=== PATIENT | female | born 1940 | race Caucasian/White ===

== ENCOUNTER → 2017-03-05 | Outpatient (CLI) | payer MEDICARE, BC ==
--- NOTE | 2017-03-05 07:50 | US ---
EXAMINATION TYPE: US kidneys/renal and bladder DATE OF EXAM: 03/05/2017 7:26 AM COMPARISON: NONE CLINICAL HISTORY: N20.0 Kidney stone. Patient stated prior renal stone years ago, and currently had e pisode of pelvic pain EXAM MEASUREMENTS: Right Kidney: 11.4 x 6.0 x 4.1 cm Left Kidney: 10.5 x 4.9 x 4.4 cm Post Void Residual Volume: 33.9 mL Right Kidney: abnormally prominent renal pelvis at 1.6cm Left Kidney: abnormally prominent renal pelvis at 1.5cm Bladder: wnl Bilateral Jets seen: Yes Normal Post Void Residual: Yes, as is <50.0ml. No solid renal length. No nephrolithiasis is identified. IMPRESSION: Prominent renal pelves may reflect extrarenal pelvis although chronic UPJ obstruction is not excluded . Correlate clinically and consider CT if indicated.
== END | disposition home or self-care (01) ==
LOC: RADUSWWP 06:46
PROVIDERS: ATTEND Internal Medicine Geriatric Medicine
DX: N20.0 Calculus of kidney (principal)
CPT/HCPCS: 76770

== ENCOUNTER → 2017-06-01 | Outpatient (CLI) | payer MEDICARE, BC ==
--- NOTE | 2017-06-02 10:45 | MM ---
Reason for exam: screening (asymptomatic). Last mammogram was performed 1 year ago. History: Patient is postmenopausal. Family history of breast cancer in mother at age 62, breast cancer in grandmother at age 52, breast cancer in 2 aunts, and breast cancer in 2 cousins. Benign left US cyst aspiration of the left breast, March 16, 2007. Excisional biopsy of the right breast, 1987. Cyst aspiration of the right breast. Took estrogen for 15 years 6 months beginning at age 60. Physical Findings: A clinical breast exam by your physician is recommended on an annual basis and results should be correlated with mammographic findings. MG 3D Screening Mammo W/Cad Bilateral CC and MLO view(s) were taken. Prior study comparison: May 28, 2016, left breast US breast workup limited LT. May 21, 2016, bilateral MG 3d screening mammo w/cad. May 07, 2015, bilateral MG screening mammo w CAD. April 16, 2014, bilateral MG diagnostic mammo w CAD JERZY. March 31, 2013, CAD bilateral diagnostic mammogram. March 30, 2012, bilateral digital screening mammo w/CAD. The breast tissue is heterogeneously dense. This may lower the sensitivity of mammography. No significant changes when compared with prior studies. ASSESSMENT: Negative, BI-RAD 1 RECOMMENDATION: Routine screening mammogram of both breasts in 1 year.
== END | disposition home or self-care (01) ==
LOC: RADMAMWWP 08:11
PROVIDERS: ATTEND Internal Medicine Geriatric Medicine
DX: Z12.31 Encounter for screening mammogram for malignant neoplasm of breast (principal)
CPT/HCPCS: 77063; G0202

== ENCOUNTER → 2018-06-23 | Outpatient (CLI) | payer MEDICARE, BC ==
--- NOTE | 2018-06-28 10:48 | MM ---
Reason for exam: screening (asymptomatic). Last mammogram was performed 1 year and 1 month ago. History: Patient is postmenopausal. Family history of breast cancer in mother at age 62, breast cancer in grandmother at age 52, breast cancer in 2 aunts, and breast cancer in 2 cousins. Benign left US cyst aspiration of the left breast, March 16, 2007. Excisional biopsy of the right breast, 1987. Cyst aspiration of the right breast. Took estrogen for 15 years 6 months beginning at age 60. Physical Findings: A clinical breast exam by your physician is recommended on an annual basis and results should be correlated with mammographic findings. MG 3D Screening Mammo W/Cad Bilateral CC and MLO view(s) were taken. Prior study comparison: June 01, 2017, bilateral MG 3d screening mammo w/cad. May 21, 2016, bilateral MG 3d screening mammo w/cad. The breast tissue is heterogeneously dense. This may lower the sensitivity of mammography. Previous mammotome biopsy in the left breast. No significant changes when compared with prior studies. ASSESSMENT: Negative, BI-RAD 1 RECOMMENDATION: Routine screening mammogram of both breasts in 1 year.
== END | disposition home or self-care (01) ==
LOC: RADMAMWWP 09:40
PROVIDERS: ATTEND Internal Medicine Geriatric Medicine
DX: Z12.31 Encounter for screening mammogram for malignant neoplasm of breast (principal)
CPT/HCPCS: 77063; 77067

== ENCOUNTER → 2018-08-09 | Outpatient (CLI) | payer MEDICARE, BC ==
--- NOTE | 2018-08-09 15:36 | US ---
EXAMINATION TYPE: US venous doppler duplex LE LT DATE OF EXAM: 08/09/2018 11:23 AM COMPARISON: US 07/27/15 CLINICAL HISTORY: M79.672 PAIN IN LEFT FOOT,E11.9 TYPE 2 DM. SIDE PERFORMED: Left TECHNIQUE: The lower extremity deep venous system is examined utilizing real time linear array sonog latoya with graded compression, doppler sonography and color-flow sonography. VESSELS IMAGED: External Iliac Vein (EIV) Common Femoral Vein Deep Femoral Vein Greater Saphenous Vein * Femoral Vein Popliteal Vein Small Saphenous Vein * Proximal Calf Veins (* superficial vessels) Grayscale, color doppler, spectral doppler imaging performed of the deep veins of the left lower extr emity. There is normal flow, compressibility, vascular waveforms. Left Leg: Negative for DVT IMPRESSION: No sonographic evidence of deep venous thrombosis within the left lower extremity.
== END ==
LOC: RADUSWWP 11:03
PROVIDERS: ATTEND Orthopaedic Surgery
DX: M79.672 Pain in left foot (principal); I80.9 Phlebitis and thrombophlebitis of unspecified site; E11.9 Type 2 diabetes mellitus without complications; M79.89 Other specified soft tissue disorders

== ENCOUNTER → 2019-03-08 | Outpatient (CLI) | payer MEDICARE, BC ==
--- NOTE | 2019-03-08 10:05 | USB ---
Reason for exam: clinical finding. History: Patient is postmenopausal. Family history of breast cancer in mother at age 62, breast cancer in grandmother at age 52, breast cancer in 2 aunts, and breast cancer in 2 cousins. Benign left US cyst aspiration of the left breast, March 16, 2007. Excisional biopsy of the right breast, 1987. Cyst aspiration of the right breast. Took estrogen for 15 years 6 months beginning at age 60. Indicated problem(s): pain in the left breast. Physical Findings: Nurse Summary: left nipple inversion with clear discharge noted on exam left breast tissue prominence posterior nipple (nurse ts). US Breast LT Left complete breast ultrasound includes all four quadrants, the retroareolar region and axilla. Finding demonstrates a 2.9 x 0.5 x 0.5cm tubular, solid components at the posterior nipple, biopsy recommended in this patient with new nipple inversion and clear nipple discharge. These results were verbally communicated with the patient and result sheet given to the patient on 03/08/19. ASSESSMENT: Suspicious, BI-RAD 4 RECOMMENDATION: Surgical consultation and ultrasound core biopsy of the left breast. Called Dr. Huizar with mammographic findings and has scheduled an appointment for the patient for 03/15/19 at 3:[address] Mcdonald. PRELIMINARY REPORT CALLED AND FAXED TO DR. MCDONALD ON 03/08/19.
== END | disposition home or self-care (01) ==
LOC: RADUSWWP 08:12
PROVIDERS: ATTEND Internal Medicine Geriatric Medicine
DX: N64.9 Disorder of breast, unspecified (principal)

== ENCOUNTER → 2019-03-29 | Day surgery (SDC) | payer MEDICARE, BC ==
[2019-03-29 13:24] VITALS: RESP 16; BMI 29.7
[2019-03-29 14:34] VITALS: BP 148/82; PULSE 59; TEMP 98.1
--- NOTE | 2019-03-30 09:14 | USB ---
EXAMINATION TYPE: US biopsy breast VAD LT, MG diagnostic mammo LT wo CAD DATE OF EXAM: 03/29/2019 CLINICAL HISTORY: R92.8 ABN BLADIMIR. TECHNIQUE: Ultrasound guided core biopsy of left breast. COMPARISON: Ultrasound dated 03/08/2019 FINDINGS: The procedure of ultrasound guided core biopsy was explained to the patient. Benefits, alternatives, and risks were discussed. An informed consent was then obtained. Preprocedural timeout was performed. The patient was placed in supine positioning for imaging and for the procedure. The overlying skin was prepped and draped in usual sterile fashion. 10 cc of 1% lidocaine was used as anesthetic into the skin and subcutaneous tissue up to the retroareolar tubular 2.9 x 0.5 x 0.5 cm possible duct with solid internal components in this patient with new nipple inversion and clear discharge. Under ultrasound guidance, a 12-gauge vacuum assisted biopsy gun device was used to obtain 4 core samples. Following this, a wing shaped biopsy marker was left at the site of biopsy. The patient tolerated the procedure well without any immediate complication. The patient was kept in the radiology department for short stay after the procedure and then discharged home in stable condition. Postprocedural mammogram demonstrates appropriate biopsy marker placement IMPRESSION: Successful, uncomplicated ultrasound guided core biopsy of area of a tubular 2.9 cm retroareolar mass, likely a dilated duct with filling defect in this patient with clear nipple discharge and new nipple inversion, full pathology results to follow. Pathology Results: Benign LEFT BREAST, THREE O'CLOCK, ULTRASOUND GUIDED CORE BIOPSY: Fibrocystic changes including fibrosis, cysts, sclerosing adenosis and microcalcifications. Recommendation Surgical consult of the left breast. Nipple inversion. Clear nipple discharge, duct exploration could be considered or MRI. MTDD
== END | disposition home or self-care (01) ==
LOC: RADUSWWP 12:53
PROVIDERS: ATTEND Surgery
DX: N60.32 Fibrosclerosis of left breast (principal); N60.02 Solitary cyst of left breast; N60.22 Fibroadenosis of left breast; Z88.0 Allergy status to penicillin; Z88.2 Allergy status to sulfonamides
CPT/HCPCS: 88305; 77065; 19083; A4648; J2001

== ENCOUNTER → 2019-04-28 | Outpatient (CLI) | payer MEDICARE, BC ==
--- NOTE | 2019-05-02 16:24 | BMR ---
EXAMINATION TYPE: MR breast BILAT wo/w con DATE OF EXAM: 04/28/2019 COMPARISON: Mammogram and ultrasound dating back to 06/01/2017 HISTORY: Fibrocystic disease of left breast / clear nipple discharge and left nipple inversion TECHNIQUE: A series of fat and water weighted images in the long and short axis views of both breasts are obtained in conjunction with dynamic contrast MRI with subtraction technique. The patient was i njected with 7.5 mL intravenous Gadavist gadolinium contrast. Three-dimensional and additional post processing imaging is created on independent workstation and reviewed during official interpretation of this study. FINDINGS: The breasts are composed of heterogenous fibroglandular tissue. There is mild symmetric philip kground parenchymal enhancement. There is precontrast T1 hyperintensity within a solitary mildly dilated retroareolar duct measuring a pproximately 4 mm. There does appear to be very subtle mild enhancement along this duct that is linea r nonmass enhancement. This persists posteriorly from the nipple measuring a distance of approximatel y 4.4 cm in the retroareolar left breast at the nipple. Susceptibility artifact from a biopsy marker is seen approximately 8 mm lateral to this and sixth slices above this. There is some discontinuity i n the ductal enhancement. No suspicious internal mammary, intramammary, or axillary adenopathy is seen within either breast. No suspicious mass nor nonmass enhancement within the right breast. No additional abnormal enhancement on the left. Multiple background foci are seen. IMPRESSION: BI-RADS 4-suspicious finding. Very subtle and mild nonmass enhancement is seen along a solitary dilat ed retroareolar duct measuring 4.4 cm in length that is linear and is continuous. This is suspicious in a patient with clear nipple discharge and new nipple inversion. Degree of enhancement is difficult to distinguish as there is precontrast T1 hyperintensity indicative of proteinaceous or hemorrhagic internal debris. This could be localized with MRI for duct exploration. Alternatively MRI biopsy coul d be considered. If discharge is reproducible and uniorficeal ductogram with subsequent mammographic localization for duct exploration could be performed.
== END | disposition home or self-care (01) ==
LOC: RADMRIMAIN 10:55
PROVIDERS: ATTEND Surgery
DX: N60.12 Diffuse cystic mastopathy of left breast (principal); N64.52 Nipple discharge; N64.59 Other signs and symptoms in breast
CPT/HCPCS: C8937; C8908; A9585; 77049

== ENCOUNTER 2019-06-01 10:40 | Day surgery (SDC) | payer MEDICARE, BC ==
[2019-05-29 11:04] VITALS: BMI 29.7
[~2019-06-01 10:40] MED LIST: DEXAMETHASONE SOD PHOSPHATE 10 MG/ML 1 ML VIAL IV ONE; HEPARIN SODIUM,PORCINE 5,000 UNIT/ML 1 ML VIAL SQ ONE; LACTATED RINGERS 1,000 ML IV SCH; LIDOCAINE 1% 20 ML VIAL (10MG/ML) FOR IV START INTRADERMA PRN; MIDAZOLAM 2 MG/2 ML VIAL IV PRN; ONDANSETRON 4 MG/2 ML VIAL IVP ONE; SCOPOLAMINE 1.5MG/72HR PATCH TRANSDERM ONE
[2019-06-01 11:27] LABS: Glucose,Whole Blood 114 mg/dL (75-99)
[2019-06-01] MEDS ORDERED: ALPRAZolam 0.25 MG TAB PO ONE (11:28)
[2019-06-01] MEDS ORDERED: LIDOCAINE 1% INJ 10MG/ML (20 ML MDV) SQ ONE (13:21)
[2019-06-01] MEDS ORDERED: MIDAZOLAM 2 MG/2 ML VIAL ONE (13:50)
[2019-06-01] MEDS ORDERED: NEOSTIGMINE 1 MG/ML 10 ML VIAL ONE (13:50)
[2019-06-01] MEDS ORDERED: fentaNYL (PF) 50 MCG/ML 2 ML AMP ONE (13:50)
[2019-06-01] MEDS ORDERED: PROPOFOL 10 MG/ML 20 ML VIAL IV ONE (13:50)
[2019-06-01] MEDS ORDERED: ROCURONIUM BROMIDE 10 MG/ML 10 ML VIAL IV ONE (13:50)
[2019-06-01] MEDS ORDERED: LIDOCAINE 1% INJ 10MG/ML (20 ML MDV) ONE (13:50)
[2019-06-01] MEDS ORDERED: GLYCOPYRROLATE 0.2 MG/ML 2 ML VIAL ONE (13:50)
[2019-06-01] MEDS ORDERED: ePHEDrine SULFATE/0.9% NACL/PF 50 MG/5 ML SYRINGE IV ONE (13:50)
[2019-06-01] MEDS ORDERED: LIDOCAINE 1%-EPI 1:100,000 20 ML VIAL SQ ONE ×2 (14:06→15:09)
[2019-06-01 14:51] LABS: Glucose,Whole Blood 95 mg/dL (75-99)
[2019-06-01 15:29] VITALS: TEMP 96.8
--- NOTE | 2019-06-01 15:30 | P.OP ---
Date of Procedure: 06/01/19 Preoperative Diagnosis: Nipple drainage, inverted nipple Postoperative Diagnosis: Nipple drainage, inverted nipple Procedure(s) Performed: Left breast ductal exploration and ductal excision with needle localization Anesthesia: ESTRADA Surgeon: Wagner Granda Pathology: other (Left breast ductal lesion, posterior margin, superior posterior margin) Condition: stable Disposition: same day Indications for Procedure: This is a 78-year-old female that began to have nipple drainage and left-sided nipple inversion. Secondary to this, the patient did undergo imaging. Imaging was noted to be abnormal and she did undergo biopsy of left breast. Biopsy was found to be benign, however the findings were discordant with imaging findings. MRI was then ordered and an abnormal duct was visualized. The case was discussed at breast tumor board and decision was made for a ductal expiration. This was expected to the patient and the patient did agree. She was explained the risks, benefits and alternatives to the procedure and did provide consent prior to attending the operating suite. Operative Findings: Specimen removed without clip finding on x-ray. Additional superior and posterior margins were taken with clip in place. Description of Procedure: The patient was brought into the operating suite and placed in supine position on the operating table. Sedation was provided by anesthesia and the patient underwent endotracheal intubation. The patient was then prepped and draped in regular sterile fashion. A left-sided curvilinear incision was made at the areolar line. Dissection was then carried towards the area of needle localization. The ductal area just below the nipple was interrogated and excised. This dissection was carried towards the chest wall. The duct was then removed in its entirety and handed as specimen. X-ray was performed by radiology and clip was noted not to be in place. An additional posterior and superior posterior margin was then taken. Clip was noted to be in place on repeat x-ray. Hemostasis was maintained with electrocautery. Irrigation was then used within the wound. The surgical site was then closed in layers with 3- 0 Vicryl and 4-0 Vicryl suture. The patient was awakened in the operating suite and taken to post anesthesia care unit in stable condition.
[2019-06-01 15:59] LABS: Glucose,Whole Blood 100 mg/dL (75-99)
[2019-06-01] MEDS: HYDROmorphone 0.5 MG/0.5 ML SYRINGE IVP PRN ×2 (16:10→16:25)
[2019-06-01] MEDS ORDERED: ONDANSETRON 4 MG/2 ML VIAL IVP ONE (16:30)
[2019-06-01 16:52] VITALS: PULSE 48; RESP 18
[2019-06-01 16:59] VITALS: BP 126/74
--- NOTE | 2019-06-01 21:32 | MM ---
EXAMINATION TYPE: MG pre op needle loc LT, MG surgical specimen LT DATE OF EXAM: 06/01/2019 COMPARISON: Bilateral breast MRI April 28, 2019. Left breast biopsy March 29, 2019 and mammogram. Older mammograms. CLINICAL HISTORY: Abnormal MRI. Left breast nipple discharge. TECHNIQUE: Needle localization with wire placement and surgical excision of area of concern in the left breast. FINDINGS: The procedure of needle localization with wire placement and than surgical excision was explained to the patient. Benefits, alternatives, and risks were discussed. An informed consent was then obtained. Review of MRI was performed. . MRI concern is medial and just inferior to the biopsy clip. Because of this inferior approach was chosen. The overlying skin was prepped and draped in usual sterile fashion. Lidocaine was used as anesthetic into the skin and subcutaneous tissue up to the level of area of concern. A 7 cm needle was used. It was placed via a inferior approach under mammographic guidance. Subsequent 90 degrees mammogram show the needle to be in satisfactory position relative to the targeted area, biopsy clip which is in close proximity to area of MRI concern. At this point, wire was placed and the needle was withdrawn. The wire was fixed to patient's skin. Images were marked for surgeon. The patient tolerated the procedure well without any immediate complication. The patient was kept in the radiology department for short stay after the procedure and then taken to surgery for surgical excision. Targeted biopsy clip and wire are identified in specimen mammogram. The patient was kept in hospital for short stay after the procedure and then discharged home in stable condition. IMPRESSION: Successful, uncomplicated needle localization with wire placement and surgical excision of targeted biopsy clip in the left breast, full pathology results to follow. Low to intermediate index of suspicion noted at time of procedure. Pathology Results: High Risk A. LEFT BREAST, NEEDLE LOCALIZATION EXCISION: Intraductal papilloma with focal atypia, not involving the margin. Background fibrocystic changes including fibrosis, cysts, sclerosing adenosis with calcifications, apocrine metaplasia, fibroadenomatoid hyperplasia and mild usual type ductal hyperplasia including papillomatosis. Previous biopsy site. B. LEFT BREAST, SUPERIOR POSTERIOR MARGIN, EXCISION: Intraductal papilloma extending to the black inked (superior/posterior) margin. Background fibrocystic changes with rare microcalcifications. C. LEFT BREAST, POSTERIOR MARGIN, EXCISION: Benign breast with fibrocystic changes including sclerosing adenosis with microcalcifications. Recommendation Follow up mammogram of the left breast in 6 months and follow up breast MRI in 6 months. The localized duct was pre-contrast T1 hyperintense with subtle enhancement. Papillomas account for the ductal debris and minimally enhancement was likely inflamed. MTDD
== END 2019-06-01 17:18 | disposition home or self-care (01) ==
LOC: OR 10:40
PROVIDERS: ATTEND Surgery
DX: D24.2 Benign neoplasm of left breast (principal); N60.12 Diffuse cystic mastopathy of left breast; N60.22 Fibroadenosis of left breast; N60.82 Other benign mammary dysplasias of left breast; I10 Essential (primary) hypertension; E78.5 Hyperlipidemia, unspecified; E11.9 Type 2 diabetes mellitus without complications; Z87.891 Personal history of nicotine dependence; Z79.84 Long term (current) use of oral hypoglycemic drugs; Z79.82 Long term (current) use of aspirin; Z79.899 Other long term (current) drug therapy; Z88.0 Allergy status to penicillin; Z88.2 Allergy status to sulfonamides; Z90.710 Acquired absence of both cervix and uterus; Z90.49 Acquired absence of other specified parts of digestive tract; Z97.2 Presence of dental prosthetic device (complete) (partial); Z80.3 Family history of malignant neoplasm of breast; Z80.41 Family history of malignant neoplasm of ovary; Z82.49 Family history of ischemic heart disease and other diseases of the circulatory system
CPT/HCPCS: 19125; 19281; 88307; 76098; J2250; J1644; J1100; J2710; J0690; J2405; J2001; J3010; J2704; J1170

== ENCOUNTER → 2019-07-13 | Outpatient (CLI) | payer MEDICARE, BC ==
--- NOTE | 2019-07-13 14:14 | MM ---
Reason for exam: follow-up at short interval from prior study. Last mammogram was performed 3 months ago. History: Patient is postmenopausal and has history of high-risk lesion on a previous biopsy at age 78. Family history of breast cancer in mother at age 62, breast cancer in grandmother at age 52, breast cancer in 2 aunts, and breast cancer in 2 cousins. High risk MG pre op needle loc LT of the left breast, June 01, 2019. Benign US biopsy breast VAD LT of the left breast, March 29, 2019. Benign left US cyst aspiration of the left breast, March 16, 2007. Excisional biopsy of the right breast, 1987. Cyst aspiration of the right breast. Took estrogen for 15 years 6 months beginning at age 60. Physical Findings: Nurse Summary: left breast pain (nurse dw). MG 3D Diag Mammo W/Cad RT CC and MLO view(s) were taken of the right breast. Prior study comparison: March 29, 2019, left breast MG diagnostic mammo LT wo CAD. June 23, 2018, bilateral MG 3d screening mammo w/cad. The breast tissue is heterogeneously dense. This may lower the sensitivity of mammography. There is no discrete abnormality. These results were verbally communicated with the patient and result sheet given to the patient on 07/13/19. ASSESSMENT: Negative, BI-RAD 1 RECOMMENDATION: Follow-up diagnostic mammogram in 6 months. (follow up mammogram of the left breast in 6 months) Called with mammographic findings and has scheduled an appointment for the patient for 07/19/19 at 2:[address] Mcdonald. PRELIMINARY REPORT CALLED AND FAXED TO DR. MCDONALD ON 07/13/19.
== END | disposition home or self-care (01) ==
LOC: RADMAMWWP 12:40
PROVIDERS: ATTEND Surgery
DX: R92.8 Other abnormal and inconclusive findings on diagnostic imaging of breast (principal)
CPT/HCPCS: 77065; G0279; 77061

== ENCOUNTER → 2020-03-12 | Outpatient (CLI) | payer MEDICARE, BC ==
--- NOTE | 2020-03-14 07:40 | MM ---
Reason for exam: additional evaluation requested from prior study. Last mammogram was performed 8 months ago. History: Patient is postmenopausal and has history of high-risk lesion on a previous biopsy at age 78. Family history of breast cancer in mother at age 62, breast cancer in grandmother at age 52, breast cancer in 2 aunts, and breast cancer in 2 cousins. High risk MG pre op needle loc LT of the left breast, June 01, 2019. Benign US biopsy breast VAD LT of the left breast, March 29, 2019. Benign left US cyst aspiration of the left breast, March 16, 2007. Excisional biopsy of the right breast, 1987. Cyst aspiration of the right breast. Took estrogen for 15 years 6 months beginning at age 60. Physical Findings: Nurse did not find any significant physical abnormalities on exam. MG 3D Diag Mammo W/Cad JERZY Bilateral CC and MLO view(s) were taken. Prior study comparison: July 13, 2019, right breast MG 3d diag mammo w/cad RT. March 29, 2019, left breast MG diagnostic mammo LT wo CAD. The breast tissue is heterogeneously dense. This may lower the sensitivity of mammography. There are benign appearing vascular calcifications bilaterally. Previous mammotome biopsy in the left breast. There is no discrete abnormality. Benign axillary lymph nodes. These results were verbally communicated with the patient and result sheet given to the patient on 03/12/20. ASSESSMENT: Benign, BI-RAD 2 RECOMMENDATION: Routine screening mammogram of both breasts in 1 year.
== END | disposition home or self-care (01) ==
LOC: RADMAMWWP 10:24
PROVIDERS: ATTEND Surgery
DX: R92.8 Other abnormal and inconclusive findings on diagnostic imaging of breast (principal); Z78.0 Asymptomatic menopausal state; Z98.890 Other specified postprocedural states; Z80.3 Family history of malignant neoplasm of breast
CPT/HCPCS: 77066; G0279; 77062

== ENCOUNTER → 2021-04-03 | Outpatient (CLI) | payer MEDICARE, BC ==
--- NOTE | 2021-04-09 10:45 | MM ---
Reason for exam: screening (asymptomatic). Last mammogram was performed 1 year and 1 month ago. History: Patient is postmenopausal and has history of high-risk lesion on a previous biopsy at age 78. Family history of breast cancer in mother at age 62, breast cancer in grandmother at age 52, breast cancer in 2 aunts, and breast cancer in 2 cousins. High risk MG pre op needle loc LT of the left breast, June 01, 2019. Benign US biopsy breast VAD LT of the left breast, March 29, 2019. Benign left US cyst aspiration of the left breast, March 16, 2007. Excisional biopsy of the right breast, 1987. Cyst aspiration of the right breast. Took estrogen for 15 years 6 months beginning at age 60. Physical Findings: A clinical breast exam by your physician is recommended on an annual basis and results should be correlated with mammographic findings. MG 3D Screening Mammo W/Cad Bilateral CC and MLO view(s) were taken. Prior study comparison: March 12, 2020, bilateral MG 3d diag mammo w/cad JER[facility]Y. July 13, 2019, right breast MG 3d diag mammo w/cad RT. The breast tissue is heterogeneously dense. This may lower the sensitivity of mammography. Previous mammotome biopsy in the left breast. No significant changes when compared with prior studies. ASSESSMENT: Benign, BI-RAD 2 RECOMMENDATION: Routine screening mammogram of both breasts in 1 year.
== END | disposition home or self-care (01) ==
LOC: RADMAMWWP 14:32
PROVIDERS: ATTEND Surgery
DX: Z12.31 Encounter for screening mammogram for malignant neoplasm of breast (principal); Z78.0 Asymptomatic menopausal state; Z80.3 Family history of malignant neoplasm of breast
CPT/HCPCS: 77063; 77067

== ENCOUNTER → 2022-04-15 | Outpatient (CLI) | payer MEDICARE, BC ==
--- NOTE | 2022-04-16 08:22 | MM ---
Reason for Exam: Additional evaluation requested from prior study. Clinical finding. Last screening mammogram was performed 12 month(s) ago. Indicated Problems: Pain of the left side (Focal) for 8 Month(s). Patient History: Menarche at age 15. First Full-Term at age 21. Hysterectomy at age 43. Postmenopausal. Estrogen, starting at age 60 for 15 years, 6 months. Cyst Aspiration on the Right side. 1987, Excisional Biopsy on the Right side. 06/01/2019, High risk Core Biopsy on the left side. 03/29/2019, Benign Core Biopsy on the left side. 03/16/2007, Benign Cyst Aspiration on the left side. Maternal grandmother had breast cancer, age 52. Maternal cousin had breast cancer. Maternal cousin had breast cancer. Maternal aunt had breast cancer. Maternal aunt had breast cancer. Mother had breast cancer, age 62. Risk Values: [place] 5 year model risk: 4.7%. NCI Lifetime model risk: 7.7%. Prior Study Comparison: 07/13/2019 Right Diagnostic Mammogram, [facility]. 03/12/2020 Bilateral Diagnostic Mammogram, [facility]. 04/03/2021 Bilateral Screening Mammogram, [facility]. Tissue Density: The breast tissue is heterogeneously dense. This may lower the sensitivity of mammography. Findings: Analyzed By CAD. Mammogram Postoperative distortion left breast. No distinct mass. No suspicious microcalcifications. Vascular calcifications present.. Technique: Method: Targeted. Findings: The upper outer quadrant of the left breast, the axilla of the left breast and the retroareolar of the left breast were scanned. No solid or cystic mass is identified. Overall Assessment: Negative, BI-RAD 1 Assessment: MG 3D diag mammo w/cad JERZY - Bilateral: Incomplete: need additional imaging evaluation, BI-RAD 0 - Left. US breast limited LT - Left: Negative, BI-RAD 1. Management: Screening Mammogram of both breasts in 1 year. A clinical breast exam by your physician is recommended on an annual basis and results should be correlated with mammographic findings. Results were given to the patient verbally at the time of exam. Electronically signed and approved by: Jabier Valadez M.D. Radiologis
== END | disposition home or self-care (01) ==
LOC: RADMAMWWP 14:16
PROVIDERS: ATTEND Internal Medicine Geriatric Medicine
DX: N64.4 Mastodynia (principal); Z80.3 Family history of malignant neoplasm of breast; Z78.0 Asymptomatic menopausal state
CPT/HCPCS: 77066; 76642; G0279; 77062

== ENCOUNTER 2022-05-23 17:09 | Emergency (ER) | payer MEDICARE, BC ==
[2022-05-23 17:16] VITALS: RESP 20; TEMP 97.7
--- NOTE | 2022-05-23 17:37 | ED ---
General Adult HPI - General Chief complaint: Extremity Injury, Lower Stated complaint: Sent by ortho/Possible Blood clot Time Seen by Provider: 05/23/22 17:23 Source: patient Mode of arrival: ambulatory Limitations: no limitations - History of Present Illness Initial comments: Dictation was produced using [employer] dictation software. please excuse any grammatical, word or spelling errors. Chief Complaint: 81-year-old female presents with left calf pain History of Present Illness: 81-year-old female she presents to emergency departm ent with left calf pain. Patient states she recently had arthroscopy performed on the left knee. She called the on-call orthopedic surgeon in 2 explained to him that she was having left calf pain or patient states that she was instructed to come to the ER for evaluation of blood clot. Patient states that whenever she stands she has significant swelling the left leg worse in the right. She also has left-sided Pain the left popliteal pain. Patient has any chest pain shortness of breath. Denies any history of blood clot. The ROS documented in this emergency department record has been reviewed and confirmed by me. Those systems with pertinent positive or negative responses have been documented in the HPI. All other systems are other negative and/or noncontributory. PHYSICAL EXAM: General Impression: Alert and oriented x3, not in acute distress HEENT: Normocephalic atraumatic, extra-ocular movements intact, pupils equal and reactive to light bilaterally, mucous membranes moist. Cardiovascular: Heart regular rate and rhythm Chest: Able to complete full sentences, no retractions, no tachypnea Musculoskeletal: Pulses present and equal in all extremities, no peripheral edema Motor: no focal deficits noted Neurological: CN II-XII grossly intact, no focal motor or sensory deficits noted Skin: Intact with no visualized rashes Psych: Normal affect and mood ED course: 81-year-old female presents to the emergency department with left lower extremity symptoms suspicious for lower extremity DVT. Ends upon arrival are within acceptable limits. No concerns for PE at this time given that she does not have any thoracic symptoms. Ultrasound is unremarkable for DVT. Patient be discharged. - Related Data Home Medications Medication Instructions Recorded Confirmed Acarbose [Precose] 25 mg PO QAM 07/27/15 06/01/19 Metoprolol Succinate [Toprol XL] 25 mg PO QAM 07/27/15 06/01/19 Simvastatin [Zocor] 40 mg PO Q48H 07/27/15 06/01/19 metFORMIN HCL [Glucophage] 500 mg PO AC-SUPPER 07/27/15 06/01/19 Vit C/E/Zn/Coppr/Lutein/Zeaxan 1 cap PO DAILY 01/31/16 05/29/19 [Preservision Areds 2 Softgel] ALPRAZolam [Xanax] 0.125 - 0.25 mg PO DAILY PRN 03/22/19 06/01/19 L.acidoph,Paracasei, B.lactis 1 each PO DAILY 03/22/19 06/01/19 [Probiotic] lisinopriL [Zestril] 2.5 mg PO HS 03/22/19 06/01/19 Kevon/D3/Mag11/Zinc/Lye Treater/Armen/Bor 1 each PO DAILY 05/29/19 05/29/19 [Caltrate 600+D Plus Tablet] Previous Rx's Medication Instructions Recorded Ibuprofen [Motrin] 600 mg PO Q6HR PRN #20 tab 06/01/19 Allergies Allergy/AdvReac Type Severity Reaction Status Date / Time Penicillins Allergy Rash/Hives Verified 05/23/22 17:16 Sulfa (Sulfonamide Allergy Rash/Hives Verified 05/23/22 17:16 Antibiotics) Review of Systems ROS Statement: Those systems with pertinent positive or pertinent negative responses have been documented in the HPI. ROS Other: All systems not noted in ROS Statement are negative. Past Medical History Past Medical History: Diabetes Mellitus, Hyperlipidemia, Hypertension Additional Past Medical History / Comment(s): Diverticulitis History of Any Multi-Drug Resistant Organisms: None Reported Past Surgical History: Appendectomy, Breast Surgery, Hysterectomy Additional Past Surgical History / Comment(s): LIVER BX. RT BREAST BIOPSY X2 (NEG), HAS MARKER Past Anesthesia/Blood Transfusion Reactions: No Reported Reaction Past Psychological History: No Psychological Hx Reported Smoking Status: Never smoker Past Alcohol Use History: None Reported Past Drug Use History: None Reported - Past Family History Mother Family Medical History: Cancer Additional Family Medical History / Comment(s): UTERINE, BREAST CA Father Additional Family Medical History / Comment(s): BRAIN ANEURYSM General Exam Limitations: no limitations Course Vital Signs 05/23/22 05/23/22 17:14 18:44 Temperature 97.7 F Pulse Rate 62 54 L Respiratory 20 20 Rate Blood Pressure 159/73 150/82 O2 Sat by Pulse 96 94 L Oximetry Disposition Clinical Impression: Calf pain Disposition: HOME SELF-CARE Instructions (If sedation given, give patient instructions): Leg Pain (ED) Is patient prescribed a controlled substance at d/c from ED?: No Referrals: Jm Vick DO [Doctor of Osteopathic Medicine] - 1-2 days Time of Disposition: 18:56
--- NOTE | 2022-05-23 18:50 | US ---
EXAMINATION TYPE: US venous doppler duplex LE LT DATE OF EXAM: 05/23/2022 5:36 PM COMPARISON: CLINICAL HISTORY: rule out blood clot. Knee surgery x 1 week ago. Recent swelling. No redness. Not on blood thinners. SIDE PERFORMED: Left TECHNIQUE: The lower extremity deep venous system is examined utilizing real time linear array sonog latoya with graded compression, doppler sonography and color-flow sonography. VESSELS IMAGED: Common Femoral Vein Deep Femoral Vein Greater Saphenous Vein * Femoral Vein Popliteal Vein Small Saphenous Vein * Proximal Calf Veins (* superficial vessels) Left Leg: Negative for DVT IMPRESSION: No sign of deep vein thrombosis in the left leg.
[2022-05-23 18:51] VITALS: BP 150/82; PULSE 54
== END 2022-05-23 19:07 | disposition home or self-care (01) ==
LOC: EC 17:09
DX: M79.662 Pain in left lower leg (principal); E11.9 Type 2 diabetes mellitus without complications; E78.5 Hyperlipidemia, unspecified; I10 Essential (primary) hypertension; Z88.0 Allergy status to penicillin; Z88.2 Allergy status to sulfonamides; Z79.899 Other long term (current) drug therapy
CPT/HCPCS: 99283

== ENCOUNTER → 2023-04-19 | Outpatient (CLI) | payer MEDICARE, BC ==
--- NOTE | 2023-04-19 13:23 | BD ---
EXAMINATION TYPE: Axial Bone Density DATE OF EXAM: 04/19/2023 CLINICAL HISTORY: 82 years old Female. ICD-10 CODE: M81.0 OSTEOPOROSIS Height: 59in Weight: 160lb FRAX RISK QUESTIONS: Family History (Parent hip fracture): unsure Secondary Osteoporosis: RISK FACTORS HISTORY OF: Family History of Osteoporosis: no Active: yes Diet low in dairy products/other sources of calcium: yes Postmenopausal woman: yes Take estrogen and/or progesterone medications: yes, none current How long: about 2 years MEDICATIONS: Additional Medications: diabetic meds, cholesterol, bp med Additional History: type II diabetic EXAM MEASUREMENTS: Bone mineral densitometry was performed using the Level System. Bone mineral density as measured about the Lumbar spine is: ----- L1-L4(G/cm2): 1.059 T Score Values are as follows: ----- L1: -0.4 ----- L2: -0.9 ----- L3: -0.6 ----- L4: -2.0 ----- L1-L4: -1.0 Z Score Values are as follows: ----- L1: 1.2 ----- L2: 0.6 ----- L3: 1.0 ----- L4: -0.4 ----- L1-L4: 0.6 Bone mineral density has: Increased 6.5% since study of: 11-29-2003 Bone mineral density about the R hip (g/cm2): 0.951 Bone mineral density about the L hip (g/cm2): 0.919 T Score values are as follows: -----R Neck: -1.2 -----L Neck: -1.6 -----R Total: -0.4 -----L Total: -0.7 Z Score values are as follows: -----R Neck: 0.8 -----L Neck: 0.4 -----R Total: 1.4 -----L Total: 1.1 Bone mineral density has: Increased 1.0% since study of: 11-29-2003 FRAX%s: The graph provided illustrates a 13.5% chance for a major osteoporotic fx and a 3.4% chance f or the hips probability for fx in 10 years time. IMPRESSION: Osteopenia (T Score between -2.5 and -1). There is slightly increased risk of fracture and the patient may be considered for treatment. Re-Screen 2-5 years. NOTE: T-SCORE=SD OF THE YOUNG ADULT MEAN.
--- NOTE | 2023-04-20 08:29 | MM ---
Reason for Exam: Screening (asymptomatic). Last screening mammogram was performed 12 month(s) ago. Patient History: Menarche at age 15. First Full-Term at age 21. Hysterectomy at age 43. Postmenopausal. Estrogen, starting at age 60 for 15 years, 6 months. Cyst Aspiration on the Right side. 1987, Excisional Biopsy on the Right side. 06/01/2019, High risk Core Biopsy on the left side. 03/29/2019, Benign Core Biopsy on the left side. 03/16/2007, Benign Cyst Aspiration on the left side. Maternal grandmother had breast cancer, age 52. Maternal cousin (1) had breast cancer. Maternal cousin (2) had breast cancer. Maternal aunt had breast cancer. Maternal aunt had breast cancer. Maternal cousin (3) had breast cancer. Maternal cousin (4) had breast cancer. Maternal cousin (5) had breast cancer. Mother had breast cancer, age 62. Risk Values: Yokasta 5 year model risk: 4.6%. NCI Lifetime model risk: 7.0%. Prior Study Comparison: 03/12/2020 Bilateral Diagnostic Mammogram, [facility]. 04/03/2021 Bilateral Screening Mammogram, [facility]. 04/15/2022 Bilateral MG 3D diag mammo w/cad [facility], [facility]. Tissue Density: The breast tissue is heterogeneously dense. This may lower the sensitivity of mammography. Findings: Analyzed By CAD. Benign-appearing vascular calcifications bilaterally is redemonstrated. Benign-appearing bilateral axillary lymph nodes are redemonstrated. There is no suspicious new group of microcalcifications or new suspicious mass in either breast. Overall Assessment: Benign, BI-RAD 2 Management: Screening Mammogram of both breasts in 1 year. . Patient should continue monthly self-breast exams. A clinical breast exam by your physician is recommended on an annual basis. This exam should not preclude additional follow-up of suspicious palpable abnormalities. Note on Yokasta scores and lifetime risk: 1. A Yokasta score greater than 3% is considered moderate risk. If this is the case, consider specialist referral to assess eligibility for a risk reducing agent. 2. If overall lifetime risk for the development of breast cancer is 20% or higher, the patient may qualify for future screening with alternating mammogram and breast MRI. Electronically signed and approved by: Roger Parker M.D.
== END | disposition home or self-care (01) ==
LOC: RADMAMWWP 12:21
PROVIDERS: ATTEND Internal Medicine Geriatric Medicine
DX: Z12.31 Encounter for screening mammogram for malignant neoplasm of breast (principal); M81.0 Age-related osteoporosis without current pathological fracture; Z78.0 Asymptomatic menopausal state; Z80.3 Family history of malignant neoplasm of breast
CPT/HCPCS: 77063; 77067; 77080

== ENCOUNTER → 2024-04-20 | Outpatient (CLI) | payer MEDICARE, BC ==
--- NOTE | 2024-04-24 08:49 | MM ---
Reason for Exam: Screening (asymptomatic). Last screening mammogram was performed 12 month(s) ago. Patient History: Menarche at age 15. First Full-Term at age 21. Hysterectomy at age 43. Postmenopausal. Estrogen, starting at age 60 for 15 years, 6 months. Cyst Aspiration on the Right side. 1987, Excisional Biopsy on the Right side. 06/01/2019, High risk Core Biopsy on the left side. 03/29/2019, Benign Core Biopsy on the left side. 03/16/2007, Benign Cyst Aspiration on the left side. Maternal grandmother had breast cancer, age 52. Maternal cousin (1) had breast cancer. Maternal cousin (2) had breast cancer. Maternal aunt had breast cancer. Maternal aunt had breast cancer. Maternal cousin (3) had breast cancer. Maternal cousin (4) had breast cancer. Maternal cousin (5) had breast cancer. Mother had breast cancer, age 62. Risk Values: Yokasta 5 year model risk: 4.5%. NCI Lifetime model risk: 6.4%. Prior Study Comparison: 04/03/2021 Bilateral Screening Mammogram, [facility]. 04/15/2022 Bilateral MG 3D diag mammo w/cad [facility], [facility]. 04/19/2023 Bilateral MG 3D screening mammo w/cad, [facility]. Tissue Density: The breasts are extremely dense, which lowers the sensitivity of mammography. Findings: Analyzed By CAD. There is no suspicious group of microcalcifications or new suspicious mass in either breast. Surgical clip in the left breast. Benign appearing calcifications. Overall Assessment: Benign, BI-RAD 2 Management: Screening Mammogram of both breasts in 1 year. . Patient should continue monthly self-breast exams. A clinical breast exam by your physician is recommended on an annual basis. This exam should not preclude additional follow-up of suspicious palpable abnormalities. Note on Yokasta scores and lifetime risk: 1. A Yokasta score greater than 3% is considered moderate risk. If this is the case, consider specialist referral to assess eligibility for a risk reducing agent. 2. If overall lifetime risk for the development of breast cancer is 20% or higher, the patient may qualify for future screening with alternating mammogram and breast MRI. Electronically signed and approved by: Praveen Israel M.D. Radiologis
== END | disposition home or self-care (01) ==
LOC: RADMAMWWP 12:35
PROVIDERS: ATTEND Internal Medicine Geriatric Medicine
DX: Z12.31 Encounter for screening mammogram for malignant neoplasm of breast (principal); Z78.0 Asymptomatic menopausal state; Z80.3 Family history of malignant neoplasm of breast
CPT/HCPCS: 77063; 77067

== ENCOUNTER → 2025-05-14 | Outpatient (CLI) | payer MEDICARE, BC ==
--- NOTE | 2025-05-14 10:35 | MM ---
Reason for Exam: Screening (asymptomatic). Last mammogram was performed 1 year(s) and 1 month(s) ago. Patient History: Menarche at age 15. First Full-Term at age 21. Hysterectomy at age 43. Postmenopausal. Estrogen, starting at age 60 for 15 years, 6 months. Cyst Aspiration on the Right side. 1987, Excisional Biopsy on the Right side. 06/01/2019, High risk Core Biopsy on the left side. 03/29/2019, Benign Core Biopsy on the left side. 03/16/2007, Benign Cyst Aspiration on the left side. Maternal grandmother had breast cancer, age 52. Maternal cousin (1) had breast cancer. Maternal cousin (2) had breast cancer. Maternal aunt had breast cancer. Maternal aunt had breast cancer. Maternal cousin (3) had breast cancer. Maternal cousin (4) had breast cancer. Mother had breast cancer, age 62. Risk Values: Yokasta 5 year model risk: 4.4%. NCI Lifetime model risk: 5.8%. Prior Study Comparison: 06/23/2018 Bilateral Screening Mammogram, [facility]. 03/29/2019 Left Diagnostic Mammogram, [facility]. 07/13/2019 Right Diagnostic Mammogram, [facility]. 03/12/2020 Bilateral Diagnostic Mammogram, [facility]. 04/03/2021 Bilateral Screening Mammogram, [facility]. 04/15/2022 Bilateral MG 3D diag mammo w/cad [facility], [facility]. 04/19/2023 Bilateral MG 3D screening mammo w/cad, [facility]. 04/20/2024 Bilateral MG 3D screening mammo w/cad, [facility]. Tissue Density: There are scattered areas of fibroglandular density. Findings: Analyzed By CAD. Left breast biopsy clip. Right breast: There is no suspicious group of microcalcifications or new suspicious mass. Left breast: There is no suspicious group of microcalcifications or new suspicious mass. Overall Assessment: Benign, BI-RAD 2 Management: Screening Mammogram of both breasts in [address] [facility] will attempt to contact patient to return for supplemental views and ultrasound if indicated. Patient should continue monthly self-breast exams. A clinical breast exam by your physician is recommended on an annual basis. This exam should not preclude additional follow-up of suspicious palpable abnormalities. Note on Yokasta scores and lifetime risk: 1. A Yokasta score greater than 3% is considered moderate risk. If this is the case, consider specialist referral to assess eligibility for a risk reducing agent. 2. If overall lifetime risk for the development of breast cancer is 20% or higher, the patient may qualify for future screening with alternating mammogram and breast MRI. [facility], , 05/14/2025 10:32 AM. Electronically signed and approved by: Jose Angel Westfall DO
== END | disposition home or self-care (01) ==
LOC: RADMAMWWP 09:03
PROVIDERS: ATTEND Internal Medicine Geriatric Medicine
DX: Z12.31 Encounter for screening mammogram for malignant neoplasm of breast (principal); R92.323 Mammographic fibroglandular density, bilateral breasts; Z80.3 Family history of malignant neoplasm of breast; Z78.0 Asymptomatic menopausal state
CPT/HCPCS: 77063; 77067